=== PATIENT | male | born 1935 | race Caucasian/White ===

== ENCOUNTER → 2017-01-22 | Outpatient (CLI) | payer MEDICARE, BC ==
[~2017-01-22] MED LIST: COREG12.5 MG PO; COUMADIN5 MG PO; CRESTOR10 MG PO; EPLERENONE25 MG PO; GLUCOPHAGE500 MG PO; GLUCOTROL10 MG PO; GLUCOTROL5 MG PO; HYDROCODON-ACE1 EAC4 PO; K-TAB ER8 MEQ PO; LASIX80 MG PO; PRINIVIL10 MG PO; ZYLOPRIM300 MG PO
== END | disposition short-term general hospital (02) ==
LOC: CLVASC 14:53
DX: L97.929 Non-pressure chronic ulcer of unspecified part of left lower leg with unspecified severity (principal)

== ENCOUNTER → 2017-02-19 | Outpatient (CLI) | payer MEDICARE, BC | END | disposition short-term general hospital (02) | LOC: CLVASC 10:59 | DX: L97.929 Non-pressure chronic ulcer of unspecified part of left lower leg with unspecified severity (principal) ==

== ENCOUNTER → 2017-04-12 | Outpatient (CLI) | payer MEDICARE, BC | END | disposition short-term general hospital (02) | LOC: CLVASC 03-19 16:22 | DX: I83.224 Varicose veins of left lower extremity with both ulcer of heel and midfoot and inflammation (principal); L97.421 Non-pressure chronic ulcer of left heel and midfoot limited to breakdown of skin; M79.89 Other specified soft tissue disorders ==